=== PATIENT | female | born 1955 | race Caucasian/White ===

== ENCOUNTER 2023-03-04 09:12 | Emergency (ER) | payer OTHER ==
[~2023-03-04] VITALS: Ht 157.5 cm; Wt 89.8 kg
[2023-03-04] MEDS ORDERED: ATORVASTATIN CA10 MG PO (09:33)
[2023-03-04] MEDS ORDERED: ACID REDUCER20 M1 PO (09:33)
[2023-03-04] MEDS ORDERED: TOPROL XL25 M1 PO (09:33)
[2023-03-04] MEDS ORDERED: ALAVERT10 M1 PO (09:33)
== END 2023-03-04 11:47 | disposition home or self-care (01) ==
LOC: ER 09:12
DX: M62.838 Other muscle spasm (principal); R42 Dizziness and giddiness; I10 Essential (primary) hypertension; E11.9 Type 2 diabetes mellitus without complications; Z91.013 Allergy to seafood; Z91.041 Radiographic dye allergy status; Z88.0 Allergy status to penicillin; Z91.040 Latex allergy status; Z88.6 Allergy status to analgesic agent